=== PATIENT | female | born 1935 | race Caucasian/White ===

== ENCOUNTER 2017-05-04 00:35 | Emergency (ER) | payer MEDICARE ==
--- NOTE | 2017-05-04 00:51 | Emergency Department Record ---
History of Present Illness - General Chief Complaint: Fall Injury Stated Complaint: FALL Time Seen by Provider: 05/04/17 00:40 Source: Patient, Family Mode of Arrival: Ambulatory Limitations: No limitations - History of Present Illness Initial Comments: 81 yo female presents to ED for evaluation following a slip and fall resulting in head injury and scalp laceration. Patient reports that she "stubbed her toe " and fell, denies LOC or syncope. Patient also reports injury to the right index finger from her fall. Patient denies the use of anticoagulation medications, reports long history of arthritis. Patient denies focal weakness on examination, and denies recent illness resulting in generalized weakness symptoms. MD Complaint: Fall Onset/Timin -: Minutes(s) Fall From: Standing When Fall Occurred: Just prior to arrival Fall Witnessed: No Place Fall Occurred: Home Loss of Consciousness: None Prolonged Down Time?: No Symptoms Prior to Fall: None Location: Head Location - Extremities: Right: Hand Severity: Moderate Context: Tripped/slipped Associated Symptoms: Denies - Mak[place] Coma Scale Eye Response: (4) Open spontaneously Motor Response: (6) Obeys commands Verbal Response: (5) Oriented [place] Total: 15 - Related Data Previous Rx's Medication Instructions Recorded Cephalexin [Keflex] 500 mg PO QID #40 cap 05/04/17 Allergies Allergy/AdvReac Type Severity Reaction Status Date / Time belladonna alkaloids Allergy PT UNSURE Verified 05/04/17 00:39 OF REACTION morphine Allergy PT UNSURE Verified 05/04/17 00:39 OF REACTION Review of Systems Constitutional: Denies: Chills, Fever, Malaise, Night sweats Eyes: Denies: Eye discharge, Eye pain ENT: Denies: Congestion, Dental pain, Ear pain Respiratory: Denies: Cough, Dyspnea Cardiovascular: Denies: Chest pain, Dyspnea on exertion Endocrine: Denies: Fatigue, Heat or cold intolerance Gastrointestinal: Denies: Abdominal pain, Nausea, Vomiting Genitourinary: Denies: Frequency, Hematuria Musculoskeletal: Reports: Arthralgia (right hand). Denies: Back pain, Gout Skin: Denies: Bruising, Change in color Neurological: Denies: Abnormal gait, Confusion, Headache, Vertigo Psychiatric: Denies: Anxiety Hematological/Lymphatic: Denies: Anemia, Blood Clots Physical Exam - General General Appearance: Alert, Oriented x3, Cooperative, Mild distress Limitations: No limitations - Head Head exam: Other (Scalp laceration is present posteriorly) Head exam detail: Laceration. negative: Abrasion, Contusion, Hurley's sign, General tenderness, Hematoma - Eye Eye exam: Normal appearance. negative: Conjunctival injection, Periorbital swelling, Periorbital tenderness, Scleral icterus - ENT Ear exam: negative: Auricular hematoma, Auricular trauma Nasal Exam: negative: Active bleeding, Discharge, Dried blood, Foreign body Mouth exam: negative: Drooling, Laceration, Muffled voice, Tongue elevation - Neck Neck exam: Normal inspection. negative: Meningismus, Tenderness - Respiratory Respiratory exam: Normal lung sounds bilaterally. negative: Respiratory distress, Rhonchi, Stridor, Wheezes - Cardiovascular Cardiovascular Exam: Regular rate, Normal rhythm, Normal heart sounds - GI/Abdominal GI/Abdominal exam: Soft. negative: Rebound, Rigid, Tenderness - Rectal Rectal exam: Deferred - exam: Deferred - Extremities Extremities exam: Tenderness, Other (STS and ecchymosis over the right index finger, numerous degenerative arthritic changes are present as well to all digits). negative: Pedal edema - Back Back exam: Denies: CVA tenderness (R), CVA tenderness (L) - Neurological Neurological exam: Alert, CN II-XII intact, Normal gait, Oriented X3. negative : Motor sensory deficit - Psychiatric Psychiatric exam: Normal affect, Normal mood - Skin Skin exam: Normal color. negative: Abrasion Type of lesion: negative: abrasion Course - Reevaluation(s) Reevaluation #1: 05/04/17 02:00 CT Brain: Laceration and subcuetaneous hematoma overlying the left fronto-parietal calvarium No underlying fracture No intracranial hemorrhage CT Cervical Spine: No evidence for fracture involving the cervical vertebral bodies or posterior elements Multilevel DJD Right fingers: Comminuted, minimally displaced fracture of the proximal phalanx of the index finger. Reevaluation #2: 05/04/17 02:20 Procedure Note: Scalp wound was cleaned with Hibiclens solution, wound measures approximately 5.0 cm, no FBs identified. Wound was irrigated with jet irrigation without complications, wound was then closed with (7) anali without complications. Patient tolerated the procedure well overall. Will initiate Keflex as the patient reports that she "gets infections easily". Patient and family were encouraged to have anali removed in 2 weeks. Disposition Disposition: Discharge Clinical Impression: Fall Qualifiers: Encounter type: initial encounter Qualified Code(s): W19.XXXA - Unspecified fall, initial encounter Scalp laceration Qualifiers: Encounter type: initial encounter Qualified Code(s): S01.01XA - Laceration without foreign body of scalp, initial encounter Finger fracture, right Qualifiers: Encounter type: initial encounter Finger: index finger Fracture type: closed Phalanx: proximal Fracture alignment: nondisplaced Qualified Code(s): S62.640A - Nondisplaced fracture of proximal phalanx of right index finger, initial encounter for closed fracture Disposition: Home, Self-Care Condition: (2) Stable Instructions: Fall Prevention for Older Adults (ED) Additional Instructions: Return to ED if your symptoms worsen or if you have any concerns. Leave finger splint in place until seen by Dr. Carreon. Keflex as directed. Follow-up with your family doctor in 3-5 days as directed. Prescriptions: Cephalexin [Keflex] 500 mg PO QID #40 cap Referrals: MARLYS CARREON [DOCTOR OF OSTEOPATH] - [facility] [Provider Group] Forms: Patient Portal Access Time of Disposition: 02:04 Quality - Quality Measures Quality Measures: N/A - Blood Pressure Screening Does Patient Have Any of the Following: Active Dx of HTN Blood Pressure Classification: Hypertensive Reading Systolic Measurement: 142 Diastolic Measurement: 73 Screening for High Blood Pressure: Patient Exclusion, Hx of HTN [[id number]]
[2017-05-04] MEDS ORDERED: CEPHALEXIN 500 MG CAPSULE PO STA (02:19)
--- NOTE | 2017-05-04 11:11 | CT SCAN REPORT ---
EXAM: HEAD CT WITHOUT CONTRAST HISTORY: PATIENT FELL WITH FRONTAL LACERATION. TECHNIQUE: Axial CT scan of the head was performed without IV contrast. A preliminary report was provided by [facility]. Comparison: None. Encounter: Initial. FINDINGS: No definite acute intracranial hemorrhage identified. No focal mass effect or midline shift apparent. Moderate generalized atrophy. Chronic appearing deep white matter changes, nonspecific, but likely representing some chronic small vessel deep white matter ischemic disease. No definite acute infarct or intracranial mass lesion is seen. There is some soft tissue swelling in the scalp overlying the left frontal parietal region with a small amount of air in the scalp likely related to associated laceration. The underlying calvarium appears intact. IMPRESSION: 1. NO DEFINITE ACUTE INTRACRANIAL HEMORRHAGE OR FOCAL MASS EFFECT IDENTIFIED. 2. 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 3. SCALP LACERATION AND SWELLING HIGH IN THE LEFT FRONTAL PARIETAL REGION. JOB NUMBER: [id number] MTDD
--- NOTE | 2017-05-04 13:01 | RADIOLOGY REPORT ---
EXAM: RIGHT INDEX FINGER HISTORY: PATIENT FELL WITH PAIN RIGHT INDEX FINGER AND SOME SOFT TISSUE SWELLING. TECHNIQUE: Three views of the right index finger were obtained. Comparison: None. Encounter: Initial. FINDINGS: There is an oblique minimally displaced and also slightly comminuted fracture of the proximal phalanx of the index finger with the proximal fracture line in the region of the proximal shaft along the ulnar aspect and the distal fracture line along the distal metaphyseal region along the radial aspect. There appears to be some comminution along the proximal aspect of the fracture line. Minimal displacement. Advanced degenerative arthritis at the PIP and DIP joints. Mild degenerative arthritis at the second MCP joint. Degenerative arthritis in the wrist as well partially seen. IMPRESSION: 1. OBLIQUE MINIMALLY DISPLACED AND SLIGHTLY COMMINUTED FRACTURE OF THE PROXIMAL PHALANX OF THE RIGHT INDEX FINGER WITH SOFT TISSUE SWELLING. 2. ADVANCED DEGENERATIVE ARTHRITIS AT THE IP JOINTS OF THE INDEX FINGER AND LESS SO AT THE MCP JOINT WELL. JOB NUMBER: [id number] [facility]TDD
--- NOTE | 2017-05-04 13:06 | CT SCAN REPORT ---
EXAM: EMERGENCY CT SCAN OF THE CERVICAL SPINE HISTORY: PATIENT FELL WITH HEAD INJURY. TECHNIQUE: Axial CT scan of the entire cervical spine was performed without IV contrast. A preliminary report was provided by [facility]. Comparison: None. Encounter: Initial. FINDINGS: Some apical pleural thickening is seen bilaterally. No definite fracture of the cervical spine identified. No prevertebral soft tissue swelling is evident. There is some loss of the normal cervical lordosis likely due to positioning or spasm. There is narrowing to some degree of all of the cervical interspaces most marked at the C7-T1 level. There is some associated hypertrophic spurring at multiple levels as well as at the odontoid-anterior arch of C1 articulation. There is also multilevel facet joint arthropathy in the cervical spine particularly at the C3-C4 and C4-C5 levels bilaterally, but also at other levels. There is multilevel foraminal stenosis. IMPRESSION: 1. NO DEFINITE FRACTURE OR PREVERTEBRAL SOFT TISSUE SWELLING SEEN IN THE CERVICAL SPINE. 2. LOSS OF LORDOSIS LIKELY DUE TO POSITIONING OR SPASM. 3. FAIRLY EXTENSIVE MULTILEVEL DEGENERATIVE CHANGE IN THE CERVICAL SPINE DETAILED ABOVE. JOB NUMBER: [id number] [facility]
== END 2017-05-04 02:50 | disposition home or self-care (01) ==
LOC: ER 00:35
DX: S01.01XA Laceration without foreign body of scalp, initial encounter (principal); S62.640A Nondisplaced fracture of proximal phalanx of right index finger, initial encounter for closed fracture; W01.10XA Fall on same level from slipping, tripping and stumbling with subsequent striking against unspecified object, initial encounter; Y92.009 Unspecified place in unspecified non-institutional (private) residence as the place of occurrence of the external cause; I10 Essential (primary) hypertension
CPT/HCPCS: 12002; 70450; 72125; 73140; 99283; 99284